=== PATIENT | female | born 1975 | race Caucasian/White ===

== ENCOUNTER → 2017-06-23 | Outpatient (CLI) | payer BC | LOC: BRMIMAGING 13:13 | PROVIDERS: ATTEND Family Medicine | DX: N94.89 Other specified conditions associated with female genital organs and menstrual cycle (principal) | CPT/HCPCS: 76856-PO ==

== ENCOUNTER → 2018-01-12 | Outpatient (CLI) | payer BC | LOC: BRMIMAGING 11:20 | PROVIDERS: ATTEND Physician Assistant Medical | DX: N94.89 Other specified conditions associated with female genital organs and menstrual cycle (principal) | CPT/HCPCS: 76856-PO ==

== ENCOUNTER → 2018-01-19 | Outpatient (CLI) | payer BC | LOC: BRMIMAGING 11:18 | PROVIDERS: ATTEND Physician Assistant Medical | DX: R13.10 Dysphagia, unspecified (principal); E03.9 Hypothyroidism, unspecified ==